=== PATIENT | male | born 1950 | race Caucasian/White ===

== ENCOUNTER → 2019-07-23 | Outpatient (CLI) | payer MEDICARE, OTHER | LOC: CARD 08:34 | PROVIDERS: ATTEND Physician Assistant | DX: I34.0 Nonrheumatic mitral (valve) insufficiency (principal); I51.7 Cardiomegaly; G47.33 Obstructive sleep apnea (adult) (pediatric); I10 Essential (primary) hypertension; Z82.49 Family history of ischemic heart disease and other diseases of the circulatory system | CPT/HCPCS: 93306 ==

== ENCOUNTER → 2020-11-04 | Outpatient (CLI) | payer MEDICARE, OTHER ==
[~2020-11-04] VITALS: Ht 187 cm; Wt 113.0 kg
[~2020-11-04] MED LIST: CATHETER FLUSH 10 ML SYR IV PRN; REGADENOSON 0.4 MG/5 ML SYR (LEXISCAN) IV ONE
[2020-11-04 14:42] VITALS: BP 144/91
--- NOTE | 2020-11-04 14:42 | Cardiology Stress Test Report ---
Stress Test Report Date of Procedure/Referring: Date of Procedure: Nov 04, 2020 PCP Belle Chew Admitting Physician Aaron Tobin Indications: Hypertension Baseline Heart Rate: 64 Baseline Blood Pressure: Blood Pressure Systolic: 144 Blood Pressure Diastolic: 91 Baseline Vitals Normal sinus rhythm Summary After explaining the procedure to the patient, he signed a consent and then brought to the stress nuclear laboratory. Patient received 0.4 mg Lexiscan for stress test, ECG, heart rate and blood pressure were monitored continuously. Resting and stress dose of radio tracer were injected, imaging was acquired and reviewed in short axis, horizontal long axis and vertical long axis views. TID: 0.99 SSS: 7 SDS: 2 EF: 65 1. Patient tolerated Lexiscan well 2. Diaphragmatic attenuation with fixed defect involving the inferior wall, subtle reversibility no significant ischemia or infarction 3. Normal left ventricular size, EF 65 percent EMILY DAILEY MD Nov 04, 2020 14:42
== END ==
LOC: CARD 09:46
PROVIDERS: ATTEND Physician Assistant
DX: I11.9 Hypertensive heart disease without heart failure (principal)
CPT/HCPCS: 78452; 93017; 93306; A9502